=== PATIENT | male | born 1940 | race Caucasian/White ===

== ENCOUNTER 2016-10-19 12:24 | Outpatient (CLI) | payer MEDICARE, OTHER | END 2016-10-19 12:25 | disposition home or self-care (01) | DX: M19.042 Primary osteoarthritis, left hand (principal); M19.041 Primary osteoarthritis, right hand ==

== ENCOUNTER 2019-09-29 20:36 | Outpatient (CLI) | payer MEDICARE, OTHER | END 2019-09-29 20:37 | disposition critical access hospital (66) | LOC: EMS 20:36 | PROVIDERS: ATTEND Surgery | DX: R29.810 Facial weakness (principal); R53.1 Weakness | CPT/HCPCS: A0425; A0429 ==

== ENCOUNTER 2019-09-29 20:59 | Emergency (ER) | payer MEDICARE, OTHER ==
--- NOTE | 2019-09-29 21:04 | ED Physician Documentation ---
History of Present Illness - Stated complaint Stated Complaint: STROKE SYMPTS - Additonal information Additional information: This is a 79-year-old male with a history of DVT on Xarelto, hypertension, and iron deficiency anemia, who presents with right-sided facial droop and weakness. At 20:00 tonight patient was inside after dinner with his family and they noticed he had a right-sided facial droop. They also noticed a bit of weakness in his hand. They immediately called EMS who arrived and found to be hypertensive, brought him here for further evaluation. He states that he has a mild headache, otherwise he has no complaints. He did not notice that he had a weak arm. His last dose of Xarelto was this morning around 7 AM. He did not have any falls or head trauma, he was not exerting himself when the event occurred. No chest pain, no shortness of breath. Review of Systems Constitutional: denies: Fever Eyes: denies: Loss of vision Cardiac: denies: Chest pain / pressure Respiratory: denies: Dyspnea GI: denies: Abdominal Pain : denies: Dysuria Skin: denies: Rash Musculoskeletal: denies: Neck pain Neurologic: reports: Focal weakness PD PAST MEDICAL HISTORY - Past Medical History Cardiovascular: Deep vein thrombosis - Past Surgical History Past Surgical History: Yes - Present Medications Home Medications: Ambulatory Orders Medication Instructions Recorded Confirmed Metoprolol Succinate 50 mg PO DAILY 11/12/14 09/29/19 Prazosin [Minipress] 1 mg PO DAILY 11/12/14 09/29/19 Simvastatin 20 mg PO DAILY 11/12/14 09/29/19 Enalapril [Vasotec] 5 mg PO DAILY 02/02/15 09/29/19 Simvastatin 20 mg PO DAILY 09/29/19 09/29/19 - Allergies Allergies/Adverse Reactions: Allergies Allergy/AdvReac Type Severity Reaction Status Date / Time No Known Drug Allergies Allergy Verified 09/29/19 21:26 - Social History Does the pt smoke?: Yes Smoking Status: Current every day smoker Does the pt drink ETOH?: Yes Does the pt have substance abuse?: No - Immunizations Immunizations are current?: Yes - POLST Patient has POLST: Yes PD ED PE NORMAL - Vitals Vital signs reviewed: Yes (Hypertensive) - General General: Other (Alert, able to answer basic questions, knows where he is, seems a little unaware of the details of the event that occurred.) - HEENT HEENT: Atraumatic, Other (Slight irregularity in shape of the right pupil, but pupils are 3 mm and reactive bilaterally. Extraocular muscles intact) - Neck Neck: Supple, no meningeal sign - Cardiac Cardiac: RRR - Respiratory Respiratory: No respiratory distress, Clear bilaterally - Abdomen Abdomen: Soft, Non tender, Non distended - Derm Derm: Normal color - Extremities Extremities: No deformity PD ED PE EXPANDED - Neuro Neuro: Other (Alert, holding conversation, answers basic questions, possible mild confusion at times. Patient has a right-sided facial droop prominent around his mouth, his tongue deviation to the right. Speech is slightly slurred. Extraocular muscles are intact, visual tang are grossly intact to co nfrontation. Patient has 4+ out of 5 strength in his right hand with electric tape slitter strength, he also has drift of his right arm. His right leg strength is nearly symmetric with his left leg, there is very slight weakness with hip flexion against resistance on the right. His left upper and lower extremities have 5 out of 5 strength. Sensation appears intact to light touch over all extremities) Results - Vitals Vitals: Vital Signs - 24 hr 09/29/19 09/29/19 09/29/19 21:21 21:42 21:53 Temperature 37.1 C Heart Rate 98 91 98 Respiratory 18 21 23 Rate Blood Pressure 209/121 H 174/96 H 187/109 H O2 Saturation 100 98 97 09/29/19 09/29/19 09/29/19 22:01 22:07 22:12 Temperature Heart Rate 101 H 105 H 104 H Respiratory 14 18 21 Rate Blood Pressure 163/93 H 170/90 H 169/92 H O2 Saturation 97 99 98 09/29/19 09/29/19 09/29/19 22:16 22:22 22:29 Temperature Heart Rate 105 H 109 H 109 H Respiratory 19 17 14 Rate Blood Pressure 163/88 H 174/86 H 163/91 H O2 Saturation 98 100 98 09/29/19 09/29/19 09/29/19 22:32 22:40 22:58 Temperature Heart Rate 110 H 103 H 111 H Respiratory 13 17 18 Rate Blood Pressure 159/85 H 163/94 H 164/88 H O2 Saturation 98 99 98 09/29/19 09/29/19 09/29/19 23:00 23:22 23:25 Temperature 36.8 C Heart Rate 110 H 96 96 Respiratory 18 20 18 Rate Blood Pressure 161/86 H 152/76 H 121/72 O2 Saturation 98 98 96 Oxygen O2 Source Room air - EKG (time done) 21:16 Other comments: Other comments - Labs Labs: Laboratory Tests 09/29/19 09/29/19 09/29/19 21:30 21:50 21:50 WBC 8.7 RBC 4.25 L Hgb 14.4 Hct 41.3 L MCV 97.2 H MCH 33.9 H MCHC 34.9 RDW 13.6 Plt Count 212 MPV 10.9 Neut # (Auto) 6.6 Lymph # (Auto) 1.3 L [place] # (Auto) 0.7 Eos # (Auto) 0.1 Baso # (Auto) 0.1 Absolute Nucleated RBC 0.00 Nucleated RBC % 0.0 PT 13.0 H INR 1.2 APTT 27.1 Sodium 133 L Potassium 4.2 Chloride 95 L Carbon Dioxide 28 Anion Gap 10.0 BUN 18 Creatinine 0.9 Estimated GFR (MDRD) 82 L Glucose 243 H Calcium 9.0 Total Bilirubin 0.7 AST 36 ALT 31 Alkaline Phosphatase 86 Total Protein 7.6 Albumin 3.9 Globulin 3.7 Albumin/Globulin Ratio 1.1 Lipase 29 TSH Ethyl Alcohol < 5.0 09/29/19 21:50 WBC RBC Hgb Hct MCV MCH MCHC RDW Plt Count MPV Neut # (Auto) Lymph # (Auto) Gr[place] # (Auto) Eos # (Auto) Baso # (Auto) Absolute Nucleated RBC Nucleated RBC % PT INR APTT Sodium Potassium Chloride Carbon Dioxide Anion Gap BUN Creatinine Estimated GFR (MDRD) Glucose Calcium Total Bilirubin AST ALT Alkaline Phosphatase Total Protein Albumin Globulin Albumin/Globulin Ratio Lipase TSH 4.97 Ethyl Alcohol - Rads (name of study) CT Head Wo Radiology: Other (Acute intraparenchymal hematoma in the left thalamus measuring 21 x 20 x 130 mill meters there is mild surrounding edema but no significant midline shift.There is a cortical breakthrough hemorrhage into the intraventricular space with a small amount of bleeding into the left lateral horn. There is abnormal dilatation of the lateral ventricles right greater than left which is concerning for hydrocephalus. There are also some chronic white matter changes.) CTA head and neck Radiology: Other (Vasculature of the neck is patent with no high-grade stenosis or definitive dissection, there is no large vessel occlusion. There are segments of moderate stenosis in the bilateral robotic welding operator, possibly secondary to intracranial atherosclerosis versus vasculitis, though this is less likely. There is possible underlying mass lesion near the hemorrhage, MR brain with and without contrast is recommended for further evaluation) PD MEDICAL DECISION MAKING - ED course Complexity details: considered differential (Ischemic stroke, hemorrhagic stroke, mass, occlusion, hydrocephalus) ED course: Patient arrives via EMS, he has an obvious facial droop and right-sided arm drift he was taken immediately to the CT scanner where CT head revealed a hemorrhage in the left thalamus. He is hypertensive over 200 systolic, he was started on nicardipine with a goal of systolic blood pressure less than 160. EKG shows no convincing signs of ischemia or dysrhythmia. I spoke with Dr. Louise of neurology at [facility] at 21:25, reviewed the patient has a intraparenchymal bleed, and he reviewed the images, He agreed with reversing patient with PCC, transfer to [facility] to the ICU, with neurosurgery on board. I spoke with Dr. Martines, Neurointensivist, Who accepted patient for transfer. I spoke with Dr. Florez of neurosurgery as well. Patient was given 2000 units of PCC, his anticoagulation is for past DVT, and at this time given he has a brain bleed causing neurologic deficit, the benefits of reversal appear to outweigh the risks. I did discuss this treatment plan with patient prior to giving the PCC, he is in agreement. On repeat examination patient has slightly increased weakness in his right arm, no other new neurologic findings. He continues to be awake and alert, I discussed the plan of care with him and he is in agreement. I also updated his daughter and were at bedside. He now has a systolic blood pressure less than 160 while on the nicardipine. I discussed the plan of care with patient his and his daughter, they are all in agreement. His CBC is unremarkable with no platelets his INR is 2.9 consistent with his anticoagulant use, his chemistry panel reveals a sodium of 133 and chloride of 95, his ethanol level is negative. On repeat examination just prior to transfer, his blood pressure is crept up and is now just over 160 systolic. He was given 1 dose of labetalol with excellent response, and his blood pressure was in normal range at the time of transfer. We discussed with EMS proper titration of the nicardipine. Patient states he is feeling well, without a headache, and his neuro exam appears stable with right facial droop and right arm weakness. Patient was transferred via ALS to [facility]. We do not have air transport tonight due to poor weather conditions. Departure - Departure Disposition: 02 Transfer Acute Care Hosp Clinical Impression: Hemorrhagic stroke, Hypertensive emergency Condition: Stable Discharge Date/Time: 09/29/19 23:43
[2019-09-29] MEDS ORDERED: IOVERSOL 320 100 ML VIAL IVP ONE ×2 (21:19→21:27)
[2019-09-29] MEDS ORDERED: niCARdipine 20 MG/200 ML 20 MG/200 ML BAG IV STA (21:20)
--- NOTE | 2019-09-29 21:29 | CT Report ---
Reason: R ARM DRIFT, FACIAL DROOP Procedure Date: 09/29/2019 Accession Number: [id number] / [id number] Procedure: CT - Head W/O Stroke Protocol CPT Code: Final Report FULL RESULT: EXAM: CT HEAD WITHOUT CONTRAST. EXAM DATE: 09/29/2019 09:07 PM. CLINICAL HISTORY: 79-year-old presenting with right facial droop and right arm drift. Evaluate for intracranial pathology. COMPARISON: None. TECHNIQUE: Multiaxial CT images were obtained from the foramen magnum to the vertex. Reformats: Sagittal and coronal. IV contrast: None. In accordance with CT protocol optimization, one or more of the following dose reduction techniques were utilized for this exam: automated exposure control, adjustment of mA and/or KV based on patient size, or use of iterative reconstructive technique. FINDINGS: Parenchyma: There is a intraparenchymal hematoma centered within left thalamus measuring approximately 21 x 21 x 30 mm (CC by TR by AP). There is mild stranding edema with focal mass effect but no significant midline shift. There are punctate calcifications seen along the periventricular white matter of the lateral ventricles bilaterally. No definite parenchymal mass seen. There is mild to moderate bilateral areas of white matter hypoattenuation. Extraaxial Spaces: There is effacement of the sulci especially near the vertex. No subdural or epidural collections identified. Ventricles: There is abnormal asymmetric, right greater than left, dilatation of the lateral ventricles. There is a small intraventricular hemorrhage seen with hemorrhage within the frontal horn in the left lateral ventricle and within the third ventricle. Incidentally seen is a cavum septum pellucidum. Sinuses and Orbits: Changes of bilateral lens replacement. Small to moderate volume frothy material within the right sphenoid sinus. Mastoid air cells and middle ear cavities are clear. Bones: No evidence of fracture or calvarial defect. Other: Vascular calcifications of the cavernous and supraclinoid ICA segments. IMPRESSION: 1. There is an acute intraparenchymal hematoma centered within the left thalamus measuring 21 x 21 x 30 mm (CC by TR by AP; volume 6.62 cc). There is mild surrounding edema with local mass but no significant midline shift. Consider a MR brain for further evaluation. 2. There is cortical breakthrough of the hemorrhage into the intraventricular space with small volume intraventricular hemorrhage seen within the frontal horn of the left lateral ventricle and within the third ventricle. 3. There is abnormal dilatation of the lateral ventricles, right greater than left. Finding is concerning for hydrocephalus. 4. There are abnormal calcifications that appeared be lining the ependyma of the lateral ventricles. Finding may represent sequela of prior infection or may represent displaced choroid plexus. 5. Mild to moderate white matter changes that appear chronic. Etiologies include increased transependymal flow or sequela of chronic small vessel ischemic disease. RADIA The critical test notification system was initiated by Dr. Ash Mann at 09:29 PM on 09/29/2019. The above critical test findings were discussed with Dr Dorantes by Dr. Ash Mann at 09:35 PM on 09/29/2019.
[2019-09-29] MEDS ORDERED: PROTHROMBIN COMPLEX CONC 500 UNIT VIAL IVP STA (21:39)
[2019-09-29 21:41] LABS: BASOPHILS # (AUTO) 0.1 10^3/uL (0.0-0.1); BASOPHILS % (AUTO) 0.6 %; EOSINOPHILS # (AUTO) 0.1 10^3/uL (0.0-0.7); EOSINOPHILS % (AUTO) 0.8 %; HGB - HEMOGLOBIN 14.4 g/dL (14.0-18.0); LYMPHOCYTES # (AUTO) 1.3 10^3/uL (1.5-3.5); LYMPHOCYTES % (AUTO) 15.4 %; MEAN CORPUSCULAR HEMOGLOBIN 33.9 pg (27.0-31.0); MEAN CORPUSCULAR HGB CONC 34.9 g/dL (32.0-36.0); MEAN CORPUSCULAR VOLUME 97.2 fL (80.0-94.0); MEAN PLATELET VOLUME 10.9 fL (7.4-11.4); MONOCYTES # (AUTO) 0.7 10^3/uL (0.0-1.0); MONOCYTES % (AUTO) 7.7 %; NEUTROPHILS # (AUTO) 6.6 10^3/uL (1.5-6.6); NEUTROPHILS % (AUTO) 75.2 %; PLT - PLATELET COUNT 212 10^3/uL (130-450); RED BLOOD COUNT 4.25 10^6/uL (4.70-6.10); RED CELL DISTRIBUTION WIDTH 13.6 % (12.0-15.0); WHITE BLOOD COUNT 8.7 x10^3/uL (4.8-10.8)
--- NOTE | 2019-09-29 21:51 | CT Report ---
Reason: L sided facial droop Procedure Date: 09/29/2019 Accession Number: [id number] / [id number] Procedure: CT - ANGIO HEAD W/WO CPT Code: Addended Final Report FULL RESULT: EXAM: CT ANGIOGRAM HEAD AND NECK. CT SCAN HEAD WITH CONTRAST. EXAM DATE: 09/29/2019 09:19 PM. CLINICAL HISTORY: 79-year-old presenting with right-sided facial droop and right arm weakness. Evaluate for intracranial pathology or vascular pathology. COMPARISON: HEAD W/O STROKE PROTOCOL 09/29/2019 9:07 PM. NECK ANGIO 09/29/2019 9:10 PM. TECHNIQUE: Routine axial helical CTA imaging was performed from the aortic arch through the [place] of [place]. Routine axial CT imaging of the head was performed following contrast administration. Reconstructions: Routine multiplanar 3D MIP reconstructions. IV contrast: OPTI 320, 80 mL. NASCET Criteria are used for stenosis measurements. In accordance with CT protocol optimization, one or more of the following dose reduction techniques were utilized for this exam: automated exposure control, adjustment of mA and/or KV based on patient size, or use of iterative reconstructive technique. FINDINGS: CT SCAN HEAD: Parenchyma: There is a centered within left thalamus measuring approximately 21 x 21 x 30 mm (CC by TR by AP). There is mild stranding edema with local mass-effect but no significant midline shift. There is a calcification seen along the ventricular white matter of lateral ventricles bilaterally. No definite parenchymal mass seen. There is mild to moderate bilateral areas of white matter attenuation. Along the posterior aspect of the intraparenchymal hematoma is what appears to be a mass-like lesion with hyperenhancement measuring 7 x 7 x 9 mm (CC by TR by AP). There is no evidence of "spot sign" on CT angiographic imaging. Extraaxial Spaces: There is effacement of the soles especially near the vertex. No subdural or epidural collections identified. Ventricles: There is abnormal asymmetric, right greater than left, dilatation of the lateral ventricles. There is small intraventricular hemorrhage seen with hemorrhage within the frontal horn left lateral, and within the third ventricle. Incidentally seen is a cavum septum pellucidum. Sinuses and Orbits: Changes of bilateral lens replacement. Small to moderate volume from the material within the right sphenoid sinus. Mastoid air cells and minor cavities are clear. Bones: No evidence of fracture or calvarial defect. Other: Vascular calcifications of the cavernous and supraclinoid ICA segments. CT ANGIOGRAM HEAD AND NECK: The aortic arch appears normal. The left common carotid artery rises from the innominate artery. The visualized subclavian arteries appear normal. RIGHT: Common Carotid Artery: Patent without significant stenosis. Carotid Bulb: There is minimal atherosclerotic plaque at the carotid bifurcation. Stenosis at the bifurcation by NASCET criteria: No significant stenosis. Internal Carotid Artery: No evidence of dissection. No evidence of aneurysm along the intracranial ICA. External Carotid Artery: Unremarkable. Vertebral Artery: There is arthrosclerotic plaque seen at the origin of the vertebral artery with less than 30% stenosis. The remaining visualized vertebral artery appears patent with no definite areas of high-grade stenosis or significant narrowing seen. No evidence of dissection. No aneurysm. Anterior Cerebral Artery: Patent without significant stenosis, aneurysm, or vascular malformation. Middle Cerebral Artery: Patent without significant stenosis, aneurysm, or vascular malformation. Posterior Cerebral Artery: The P1 segment appears normal. There are multiple tandem segments of moderate stenosis involving P2 and P3 segments of the right PRIMING MIXTURE CARRIER. Posterior Communicating Artery: Not definitively seen. No aneurysm. LEFT: Common Carotid Artery: Patent without significant stenosis. Carotid Bulb: There is minimal atherosclerotic plaque at the carotid bifurcation. Stenosis at the bifurcation by NASCET criteria: No significant stenosis. Internal Carotid Artery: There is atherosclerotic plaque involving the proximal cervical ICA with no high-grade stenosis or dissection seen. There is minimal atherosclerotic plaque involving the cavernous ICA segment with no high-grade stenosis seen. No evidence of aneurysm along the intracranial ICA. External Carotid Artery: Unremarkable. Vertebral Artery: Patent without significant stenosis. No evidence of dissection. No aneurysm. Anterior Cerebral Artery: Patent without significant stenosis, aneurysm, or vascular malformation. Middle Cerebral Artery: Patent without significant stenosis, aneurysm, or vascular malformation. Posterior Cerebral Artery: The P1 segment appears normal. There are multiple tandem segments of moderate stenosis involving P2 and P3 segments of the left PRIMING MIXTURE CARRIER. No aneurysm. Posterior Communicating Artery: Patent. No aneurysm. CENTRAL: Anterior Communicating Artery: Patent. No aneurysm. Basilar Artery: Patent without significant stenosis. No aneurysm. DURAL VENOUS SINUSES AND MAJOR CENTRAL VEINS: Patent. OTHER: The visualized pharynx and larynx appear normal. The major salivary glands appear normal. The visualized thyroid appears normal. No cervical lymphadenopathy. No necrotic lymph nodes. Soft tissues of the neck appear normal. Pleural-parenchymal scarring of the visualized lung apices. Dependent atelectatic changes. Minimal emphysematous changes. No acute fracture or traumatic subluxation. Multilevel degenerative changes. No suspicious osseous lesion seen. IMPRESSION: CT SCAN HEAD: 1. There is an acute intraparenchymal hematoma centered within the left thalamus measuring 21 x 221 x mm (CC by TR by AP; volume 6.62 cc). Along the posterior aspect of the intraparenchymal hematoma is what appears to be a masslike lesion with hyperenhancement measuring 7 x 7 x 9 mm (CC by TR by AP). There is no evidence of "spot sign" on CT angiographic imaging to suggest active hemorrhage. Combined findings suggest potential underlying mass lesion such as metastasis or primary glial neoplasm with subsequent hemorrhage. There is mild surrounding edema with local mass but no significant midline shift. Consider a MR brain for further evaluation. 2. There is cortical breakthrough hemorrhage of the hemorrhage into the intraventricular space with small volume intraventricular hemorrhage seen within the frontal horn of the left lateral ventricle and within the third ventricle. 3. There is abnormal dilatation of the lateral ventricles, right greater than left. Finding is concerning for hydrocephalus 4. There are abnormal calcifications that appeared be lining the ependyma of the lateral ventricles. Finding may represent sequela of prior infection or [place] present displaced choroid plexus. 5. Mild to moderate white matter changes that appear chronic. Etiologies include increased transependymal flow or sequela of chronic small vessel ischemic disease.. CT ANGIOGRAM NECK: 1. The vasculature of the neck appears patent with no high-grade stenosis or definite dissection seen. CT ANGIOGRAM HEAD: 1. No large vessel occlusion. 2. There is CTA evidence of multiple tandem segments of moderate stenosis of bilateral voice writing reporter that may be secondary to intracranial atherosclerosis. Possibility that the stenoses are secondary to vasculitis is considered less likely. 3. No aneurysm. RADIA The call report notification system was initiated by Dr. Ash Mann at 09:50 PM on 09/29/2019. ADDENDUM: 09/29/19 21:57 The above call report findings were discussed with John Jiang by Dr. Ash Mann at 09:57 PM on 09/29/2019.
--- NOTE | 2019-09-29 21:51 | CT Report ---
Reason: L sided facial droop, L neck pain Procedure Date: 09/29/2019 Accession Number: [id number] / [id number] Procedure: CT - ANGIO NECK W CPT Code: Addended Final Report FULL RESULT: EXAM: CT ANGIOGRAM HEAD AND NECK. CT SCAN HEAD WITH CONTRAST. EXAM DATE: 09/29/2019 09:19 PM. CLINICAL HISTORY: 79-year-old presenting with right-sided facial droop and right arm weakness. Evaluate for intracranial pathology or vascular pathology. COMPARISON: HEAD W/O STROKE PROTOCOL 09/29/2019 9:07 PM. NECK ANGIO 09/29/2019 9:10 PM. TECHNIQUE: Routine axial helical CTA imaging was performed from the aortic arch through the [place]. Routine axial CT imaging of the head was performed following contrast administration. Reconstructions: Routine multiplanar 3D MIP reconstructions. IV contrast: OPTI 320, 80 mL. NASCET Criteria are used for stenosis measurements. In accordance with CT protocol optimization, one or more of the following dose reduction techniques were utilized for this exam: automated exposure control, adjustment of mA and/or KV based on patient size, or use of iterative reconstructive technique. FINDINGS: CT SCAN HEAD: Parenchyma: There is a centered within left thalamus measuring approximately 21 x 21 x 30 mm (CC by TR by AP). There is mild stranding edema with local mass-effect but no significant midline shift. There is a calcification seen along the ventricular white matter of lateral ventricles bilaterally. No definite parenchymal mass seen. There is mild to moderate bilateral areas of white matter attenuation. Along the posterior aspect of the intraparenchymal hematoma is what appears to be a mass-like lesion with hyperenhancement measuring 7 x 7 x 9 mm (CC by TR by AP). There is no evidence of "spot sign" on CT angiographic imaging. Extraaxial Spaces: There is effacement of the soles especially near the vertex. No subdural or epidural collections identified. Ventricles: There is abnormal asymmetric, right greater than left, dilatation of the lateral ventricles. There is small intraventricular hemorrhage seen with hemorrhage within the frontal horn left lateral, and within the third ventricle. Incidentally seen is a cavum septum pellucidum. Sinuses and Orbits: Changes of bilateral lens replacement. Small to moderate volume from the material within the right sphenoid sinus. Mastoid air cells and minor cavities are clear. Bones: No evidence of fracture or calvarial defect. Other: Vascular calcifications of the cavernous and supraclinoid ICA segments. CT ANGIOGRAM HEAD AND NECK: The aortic arch appears normal. The left common carotid artery rises from the innominate artery. The visualized subclavian arteries appear normal. RIGHT: Common Carotid Artery: Patent without significant stenosis. Carotid Bulb: There is minimal atherosclerotic plaque at the carotid bifurcation. Stenosis at the bifurcation by NASCET criteria: No significant stenosis. Internal Carotid Artery: No evidence of dissection. No evidence of aneurysm along the intracranial ICA. External Carotid Artery: Unremarkable. Vertebral Artery: There is arthrosclerotic plaque seen at the origin of the vertebral artery with less than 30% stenosis. The remaining visualized vertebral artery appears patent with no definite areas of high-grade stenosis or significant narrowing seen. No evidence of dissection. No aneurysm. Anterior Cerebral Artery: Patent without significant stenosis, aneurysm, or vascular malformation. Middle Cerebral Artery: Patent without significant stenosis, aneurysm, or vascular malformation. Posterior Cerebral Artery: The P1 segment appears normal. There are multiple tandem segments of moderate stenosis involving P2 and P3 segments of the right [employer]. Posterior Communicating Artery: Not definitively seen. No aneurysm. LEFT: Common Carotid Artery: Patent without significant stenosis. Carotid Bulb: There is minimal atherosclerotic plaque at the carotid bifurcation. Stenosis at the bifurcation by NASCET criteria: No significant stenosis. Internal Carotid Artery: There is atherosclerotic plaque involving the proximal cervical ICA with no high-grade stenosis or dissection seen. There is minimal atherosclerotic plaque involving the cavernous ICA segment with no high-grade stenosis seen. No evidence of aneurysm along the intracranial ICA. External Carotid Artery: Unremarkable. Vertebral Artery: Patent without significant stenosis. No evidence of dissection. No aneurysm. Anterior Cerebral Artery: Patent without significant stenosis, aneurysm, or vascular malformation. Middle Cerebral Artery: Patent without significant stenosis, aneurysm, or vascular malformation. Posterior Cerebral Artery: The P1 segment appears normal. There are multiple tandem segments of moderate stenosis involving P2 and P3 segments of the left [employer]. No aneurysm. Posterior Communicating Artery: Patent. No aneurysm. CENTRAL: Anterior Communicating Artery: Patent. No aneurysm. Basilar Artery: Patent without significant stenosis. No aneurysm. DURAL VENOUS SINUSES AND MAJOR CENTRAL VEINS: Patent. OTHER: The visualized pharynx and larynx appear normal. The major salivary glands appear normal. The visualized thyroid appears normal. No cervical lymphadenopathy. No necrotic lymph nodes. Soft tissues of the neck appear normal. Pleural-parenchymal scarring of the visualized lung apices. Dependent atelectatic changes. Minimal emphysematous changes. No acute fracture or traumatic subluxation. Multilevel degenerative changes. No suspicious osseous lesion seen. IMPRESSION: CT SCAN HEAD: 1. There is an acute intraparenchymal hematoma centered within the left thalamus measuring 21 x 221 x mm (CC by TR by AP; volume 6.62 cc). Along the posterior aspect of the intraparenchymal hematoma is what appears to be a masslike lesion with hyperenhancement measuring 7 x 7 x 9 mm (CC by TR by AP). There is no evidence of "spot sign" on CT angiographic imaging to suggest active hemorrhage. Combined findings suggest potential underlying mass lesion such as metastasis or primary glial neoplasm with subsequent hemorrhage. There is mild surrounding edema with local mass but no significant midline shift. Consider a MR brain for further evaluation. 2. There is cortical breakthrough hemorrhage of the hemorrhage into the intraventricular space with small volume intraventricular hemorrhage seen within the frontal horn of the left lateral ventricle and within the third ventricle. 3. There is abnormal dilatation of the lateral ventricles, right greater than left. Finding is concerning for hydrocephalus 4. There are abnormal calcifications that appeared be lining the ependyma of the lateral ventricles. Finding may represent sequela of prior infection or [place] present displaced choroid plexus. 5. Mild to moderate white matter changes that appear chronic. Etiologies include increased transependymal flow or sequela of chronic small vessel ischemic disease.. CT ANGIOGRAM NECK: 1. The vasculature of the neck appears patent with no high-grade stenosis or definite dissection seen. CT ANGIOGRAM HEAD: 1. No large vessel occlusion. 2. There is CTA evidence of multiple tandem segments of moderate stenosis of bilateral terrazzo roller that may be secondary to intracranial atherosclerosis. Possibility that the stenoses are secondary to vasculitis is considered less likely. 3. No aneurysm. RAD[facility] The call report notification system was initiated by Dr. Ash Mann at 09:50 PM on 09/29/2019. ADDENDUM: 09/29/19 21:58 The above call report findings were discussed with John Jiang by Dr. Ash Mann at 09:58 PM on 09/29/2019.
[2019-09-29 22:05] LABS: INR 1.2 (0.8-1.2)
[2019-09-29 22:09] LABS: ALBUMIN 3.9 g/dL (3.2-5.5); ALBUMIN/GLOBULIN RATIO 1.1 (1.0-2.2); ALKALINE PHOSPHATASE 86 IU/L (42-121); ALT ALANINE AMINOTRANSFERASE 31 IU/L (10-60); AST ASPARTATE AMINOTRANSFERASE 36 IU/L (10-42); BILIRUBIN,TOTAL 0.7 mg/dL (0.2-1.0); BUN - BLOOD UREA NITROGEN 18 mg/dL (6-20); CARBON DIOXIDE - CO2 28 mmol/L (21-32); CHLORIDE 95 mmol/L (101-111); CREATININE 0.9 mg/dL (0.6-1.2); GFR - MDRD 82 (>89); GLUCOSE 243 mg/dL (70-100); LIPASE 29 U/L (22-51); SODIUM 133 mmol/L (135-145); TOTAL PROTEIN 7.6 g/dL (6.7-8.2)
[2019-09-29 22:12] LABS: PARTIAL THROMBOPLASTIN TIME 27.1 secs (24.9-33.3)
[2019-09-29] MEDS ORDERED: niCARdipine 20 MG/200 ML 20 MG/200 ML BAG IV ONE (22:58)
[2019-09-29] MEDS ORDERED: LABETALOL 5 MG/1 ML 20 ML MDV IV STA (23:02)
[2019-09-29] MEDS: LABETALOL 20 MG/4 ML SYRINGE IVP STA ×2 (23:12→23:32)
[2019-09-29 23:28] VITALS: BP 121/72
== END 2019-09-29 23:43 | disposition short-term general hospital (02) ==
LOC: EDUNIT# → ED 20:59
DX: I61.8 Other nontraumatic intracerebral hemorrhage (principal); R29.810 Facial weakness; R29.898 Other symptoms and signs involving the musculoskeletal system; I16.1 Hypertensive emergency; I44.0 Atrioventricular block, first degree; Z86.718 Personal history of other venous thrombosis and embolism; Z79.01 Long term (current) use of anticoagulants; D50.9 Iron deficiency anemia, unspecified; F17.200 Nicotine dependence, unspecified, uncomplicated
CPT/HCPCS: 36415; 70450; 70496; 70498; 80053; 83690; 84443; 85025; 85610; 85730; 93005; 96365; 96375; 99284; 99285; C9132; Q9967; 80320

== ENCOUNTER 2019-09-29 23:20 | Outpatient (CLI) | payer MEDICARE, OTHER | END 2019-09-29 23:21 | disposition short-term general hospital (02) | LOC: EMS 23:20 | PROVIDERS: ATTEND Surgery | DX: I62.9 Nontraumatic intracranial hemorrhage, unspecified (principal) | CPT/HCPCS: A0425; A0426 ==

== ENCOUNTER 2020-11-08 10:46 | Outpatient (CLI) | payer MEDICARE, OTHER ==
--- NOTE | 2020-11-08 16:48 | XRAY Report ---
PROCEDURE: Hip w/Pelvis 2-3V RT INDICATIONS: HIP SPASM TECHNIQUE: AP pelvis with lateral view(s) of the bilateral hip(s). COMPARISON: None. FINDINGS: Bones: No acute fractures or dislocations. Pelvic ring appears intact. No suspicious bony lesions. There are mild-moderate degenerative changes of the right femoroacetabular joint. There is mild subc hondral sclerosis involving the acetabular side of the hip joint space on the right. There is also mi nimal subchondral cystic changes of the right femoral head. No significant joint space loss. Soft tissues: The visualized bowel gas pattern is normal. No suspicious soft tissue calcifications. IMPRESSION: Right hip without acute fracture or dislocation. Right hip joint osteoarthrosis. Reviewed by: Horacio Blanton MD on 11/08/2020 4:47 PM PST Approved by: Horacio Blanton MD on 11/08/2020 4:47 PM PST Station ID: [id number]
== END 2020-11-08 10:47 | disposition home or self-care (01) ==
LOC: DI 10:46
PROVIDERS: ATTEND Internal Medicine
DX: S73.191A Other sprain of right hip, initial encounter (principal); M16.11 Unilateral primary osteoarthritis, right hip

== ENCOUNTER 2022-02-01 09:09 | Outpatient (CLI) | payer MEDICARE, OTHER ==
--- NOTE | 2022-02-01 09:30 | XRAY Report ---
PROCEDURE: Lumbar Spine 2 View INDICATIONS: LOW BACK PAIN TECHNIQUE: 2 views of the lumbar spine were acquired. COMPARISON: None. FINDINGS: Bones: 5 [id number] vertebrae are present. Multilevel degenerative changes with anterior osteo phytes which are fused at the level of T11-12 and T12-L1. Facet arthrosis in the lower lumbar spine. There is normal bony alignment. No vertebral body compression fractures. No suspicious bony lesions . The sacroiliac joints have degenerative changes. Soft tissues: Overlying bowel gas pattern is normal. No suspicious soft tissue calcifications. An IVC filter is noted. IMPRESSION: 1. Multilevel lumbar spondylosis with facet arthrosis. 2. No significant disc space narrowing. Reviewed by: Aristides España on 02/01/2022 9:29 AM PDT Approved by: Aristides España on 02/01/2022 9:29 AM PDT Station ID: [id number]
== END 2022-02-01 09:10 | disposition home or self-care (01) ==
LOC: DI 09:09
PROVIDERS: ATTEND Internal Medicine
DX: M47.816 Spondylosis without myelopathy or radiculopathy, lumbar region (principal)

== ENCOUNTER 2022-04-13 12:27 | Day surgery (SDC) | payer MEDICARE, OTHER ==
[2022-04-13] MEDS ORDERED: PROPOFOL 500 MG/50 ML 500 MG/50 ML VIAL ONE (12:29)
[2022-04-13] MEDS ORDERED: LACTATED RINGERS 1,000 ML IV ONE (13:02)
--- NOTE | 2022-04-13 13:13 | ANESTHESIA ---
Pre-Anesthesia VS, & Labs Height: 5 ft 4 in Weight (kg): 85.1 kg Body Mass Index: 32.2 BMI Classification: Obese - NPO >8 hours <Dionne Horner - Last Filed: 04/13/22 13:10> - Diagnosis hx of colon polyps (Dionne Horner) - Procedure colonoscopy (Dionne Horner) Vital Signs: Temp Pulse Resp BP Pulse Ox 36.3 C L 85 18 157/82 H 95 04/13/22 12:36 04/13/22 12:36 04/13/22 12:36 04/13/22 12:36 04/13/22 12:36 Home Medications and Allergies <Dionne Horner - Last Filed: 04/13/22 13:10> <Marcie Godinez - Last Filed: 04/13/22 13:33> Metoprolol Succinate 50 mg PO DAILY 11/12/14 Prazosin [Minipress] 1 mg PO DAILY 11/12/14 Simvastatin 20 mg PO DAILY 11/12/14 Enalapril [Vasotec] 5 mg PO DAILY 02/02/15 Allergies/Adverse Reactions: Allergies Allergy/AdvReac Type Severity Reaction Status Date / Time No Known Drug Allergies Allergy Verified 09/29/19 21:26 Anes History & Medical History - Anesthetic History Anesthesia Complications: reports: No previous complications Family history of Anesthesia Complications: Denies Family history of Malignant Hyperthermia: Denies - Medical History Cardiovascular: reports: Hypertension, High cholesterol, Deep vein thrombosis Pulmonary: reports: None Gastrointestinal: reports: None Urinary: reports: Frequency Neuro: reports: None Musculoskeletal: reports: None, Osteoarthritis, Chronic back pain Endocrine/Autoimmune: reports: None, HyPOthyroidism Blood Disorders: reports: None Skin: reports: None Smoking Status: Current every day smoker Psychosocial: reports: No issues indicated History of Cancer?: No - Surgical History General: reports: Colonoscopy, Other (finger surgery) <Dionne Horner - Last Filed: 04/13/22 13:10> Exam General: Alert Dental: Poor dentition Mouth Openin Fingerbreadth Neck Mobility: Normal Mallampati classification: II Thyromental Distance: 4-6 cm Respiratory: Lungs clear Extremities: Normal pulses Mental/Cognitive Status: Alert/Oriented X3, Normal for patient Cognitive Status: Within normal limits <Dionne Horner - Last Filed: 04/13/22 13:10> Plan Anesthesia Type: General, Total IV Consent for Procedure(s) Verified and Reviewed: Yes Code Status: Attempt Resuscitation ASA classification: 2-Mild systemic disease Is this case an emergency?: No <Dionne Horner - Last Filed: 04/13/22 13:10> ASA classification: 3-Severe systemic disease (ASA 3) <Marcie Godinez - Last Filed: 04/13/22 13:33>
[2022-04-13] MEDS ORDERED: LIDOCAINE-MPF 2% 5 ML VIAL ONE (13:35)
[2022-04-13] MEDS ORDERED: LACTATED RINGERS 400 ML IV ONE (14:36)
[2022-04-13 15:03] VITALS: BP 156/94
--- NOTE | 2022-04-13 15:35 | ANESTHESIA POST OP EVALUATION ---
Anesthesia Post Eval - Post Anesthesia Eval Vitals: Last Vital Signs Temp 36.5 C 04/13/22 14:36 Pulse 81 04/13/22 15:02 Resp 16 04/13/22 15:02 BP 156/94 H 04/13/22 15:02 Pulse Ox 99 04/13/22 15:02 CV Function Including HR & BP: Stable Pain Control: Satisfactory Nausea & Vomiting: Negative Mental Status: Baseline Respiratory Status: Airway Patent Hydration Status: Satisfactory Anesthesia Complications: None
== END 2022-04-13 12:28 | disposition home or self-care (01) ==
LOC: SDS 12:27
PROVIDERS: ATTEND Surgery
PROC: 0DBL8ZX Excision of Transverse Colon, Via Natural or Artificial Opening Endoscopic, Diagnostic (ICD-10-PCS; 2022-04-13)
PROC: 0DBN8ZX Excision of Sigmoid Colon, Via Natural or Artificial Opening Endoscopic, Diagnostic (ICD-10-PCS; 2022-04-13)
PROC: 0DBP8ZX Excision of Rectum, Via Natural or Artificial Opening Endoscopic, Diagnostic (ICD-10-PCS; 2022-04-13)
PROC: 0DBK8ZX Excision of Ascending Colon, Via Natural or Artificial Opening Endoscopic, Diagnostic (ICD-10-PCS; principal; 2022-04-13 14:00)
DX: D12.2 Benign neoplasm of ascending colon (principal); D12.5 Benign neoplasm of sigmoid colon; D12.3 Benign neoplasm of transverse colon; D12.8 Benign neoplasm of rectum; D64.9 Anemia, unspecified; I10 Essential (primary) hypertension; I48.91 Unspecified atrial fibrillation; E11.9 Type 2 diabetes mellitus without complications; E66.9 Obesity, unspecified; Z68.33 Body mass index [BMI] 33.0-33.9, adult; Z79.01 Long term (current) use of anticoagulants; Z79.84 Long term (current) use of oral hypoglycemic drugs; Z86.718 Personal history of other venous thrombosis and embolism; Z86.73 Personal history of transient ischemic attack (TIA), and cerebral infarction without residual deficits
CPT/HCPCS: 45380; 45385; J7120

== ENCOUNTER 2023-07-28 11:42 | Outpatient (CLI) | payer MEDICARE, OTHER ==
--- NOTE | 2023-07-28 20:01 | Ultrasound Report ---
PROCEDURE: Duplex Ext Veins Right INDICATIONS: PHLBTS AND THOMBOPHLB OF UNSP DEEP VESSELS OF UNSP TECHNIQUE: Real-time imaging, as well as color and pulse Doppler interrogation, were performed of the lower extr emity deep veins from the inguinal ligament to the popliteal fossa. Attempted visualization of the ca lf veins was performed. COMPARISON: 12/10/2014 FINDINGS: There is a small amount of chronic appearing, nonocclusive thrombus seen within the poplit eal vein. Within the distal femoral vein, there is minimal flow seen, without compressibility. No deep venous thrombosis is seen more proximally. A minimal flow seen within the mid and distal posterior tibial veins and peroneal veins. Lower extremity edema is seen. IMPRESSION: Chronic, nonocclusive thrombus can be seen within the right lower extremity, which appears similar to 2014. No new thrombus or areas of occlusive thrombus can be seen. Reviewed by: Hari Zimmerman MD on 07/28/2023 6:59 PM [place] Approved by: Hari Zimmerman MD on 07/28/2023 6:59 PM [facility]UST Station ID: [id number]
== END 2023-07-28 11:43 | disposition home or self-care (01) ==
LOC: DI 11:42
PROVIDERS: ATTEND Internal Medicine
DX: I82.531 Chronic embolism and thrombosis of right popliteal vein (principal)

== ENCOUNTER 2023-10-21 04:28 | Outpatient (CLI) | payer MEDICARE, OTHER | END 2023-10-21 23:59 | disposition short-term general hospital (02) | LOC: EMS 04:28 | DX: R07.9 Chest pain, unspecified (principal); I48.91 Unspecified atrial fibrillation | CPT/HCPCS: A0425; A0427 ==

== ENCOUNTER 2023-11-02 21:57 | Outpatient (CLI) | payer MEDICARE, OTHER | END 2023-11-02 21:58 | disposition critical access hospital (66) | LOC: EMS 21:57 | DX: I47.10 Supraventricular tachycardia, unspecified (principal); R07.89 Other chest pain | CPT/HCPCS: A0425; A0427 ==

== ENCOUNTER 2023-11-02 22:13 | Emergency (ER) | payer MEDICARE, OTHER ==
--- NOTE | 2023-11-02 22:13 | ED Physician Documentation ---
History of Present Illness - Stated complaint Stated Complaint: SVT - Additonal information Additional information: BIBA. HPI from EMS as well as patient. 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 Says he had a similar episode recently for which she was treated at [facility] emergency department. EMS says patient's who was on scene when they were talking the patient (but is not in the ED at this time) indicated that the diagnosis was SVT and the patient's metoprolol dosing was increased. EMS says that on their arrival heart rate was in the 180s range. Fingerstick blood sugar was 185. EMS administered 6 mg adenosine rapid IV push which resulted in conversion to normal sinus rhythm. Patient tells me he feels near- resolution of his symptoms; the palpitations are no longer felt but he says he still feels some mild midline anterior residual chest discomfort. Review of Systems Cardiac: reports: Chest pain / pressure, Palpitations. denies: Pedal edema, Calf pain Respiratory: reports: Reviewed and negative GI: reports: Reviewed and negative Neurologic: denies: Generalized weakness, Focal weakness, Numbness PD PAST MEDICAL HISTORY - Past Medical History Past Medical History: Yes Cardiovascular: Atrial fibrillation, Other (SVT) - Present Medications Home Medications: Ambulatory Orders Medication Instructions Recorded Confirmed Atorvastatin [Lipitor] 20 mg PO QPM 04/27/22 04/27/22 Finasteride [Proscar] 5 mg PO DAILY 04/27/22 04/27/22 Levothyroxine Sodium [Synthroid] 50 mcg PO QDAC 04/27/22 04/27/22 Metformin HCl [Metformin ER 500 mg PO TIDWM 04/27/22 04/27/22 Gastric] Metoprolol Tartrate [Lopressor] 25 mg PO BID 04/27/22 04/27/22 Ferrous Gluconate [Fergon] 324 mg PO DAILYWM #30 tablet 04/28/22 Pantoprazole [Protonix] 40 mg PO BID #60 tablet 04/28/22 - Allergies Allergies/Adverse Reactions: Allergies Allergy/AdvReac Type Severity Reaction Status Date / Time No Known Drug Allergies Allergy Verified 11/02/23 22:24 PD ED PE NORMAL - Vitals Vital signs reviewed: Yes - General General: Alert and oriented X 3, No acute distress, Well developed/nourished - Neck Neck: Supple, no meningeal sign - Cardiac Cardiac: RRR, No murmur - Respiratory Respiratory: No respiratory distress, Clear bilaterally - Abdomen Abdomen: Soft, Non tender - Extremities Extremities: No edema - Neuro Neuro: Alert and oriented X 3 Results - Vitals Vitals: Vital Signs - 24 hr 11/02/23 11/02/23 11/03/23 22:24 23:40 00:49 Temperature 36.6 C Heart Rate 96 88 78 Respiratory 22 15 16 Rate Blood Pressure 159/76 H 130/77 119/63 O2 Saturation 95 98 95 Oxygen O2 Source Room air - EKG (time done) No standard instances EKG releavant findings:: EKG personally interpreted by author of this note. Relevant findings are: Rate: Rate (enter#) (94) Rhythm: NSR Vista: LAD Intervals: Normal DE QRS: Normal Ischemia: Normal ST segments, Q waves (V1-V3) Compare to prior EKG: Changed from prior EKG (compared to 04/27/22: Q V2, V3 is new (could be lead placement combined with artifact in lead V3), and LAD new (normal axis 04/27/22)) - Labs Labs: Laboratory Tests 11/02/23 11/02/23 22:44 22:44 WBC 7.9 RBC 3.71 L Hgb 12.1 L Hct 37.4 L MCV 100.8 H MCH 32.6 H MCHC 32.4 RDW 14.0 Plt Count 245 MPV 10.3 Neut # (Auto) 6.0 Lymph # (Auto) 1.1 L Johnson # (Auto) 0.6 Eos # (Auto) 0.2 Baso # (Auto) 0.1 Absolute Nucleated RBC 0.00 Nucleated RBC % 0.0 Sodium 138 Potassium 3.7 Chloride 102 Carbon Dioxide 27 Anion Gap 9.0 BUN 23 H Creatinine 0.8 Estimated GFR (MDRD) 93 Glucose 185 H Calcium 9.0 Troponin I High Sens 7.8 TSH 4.94 PD Medical Decision Making - ED course Complexity details: reviewed results, re-evaluated patient, considered differential, d/w patient ED course: Patient remained in NST with decreasingly frequent PVC/PACs during ED stay. He was asymptomatic on reevaluation prior to d/c. No concerning nor diagnostic findings on tonight's tests. His high-sensitivity troponin is normal (7.8), and no noteworthy findings on CBC nor on basic metabolic profile. TSH is normal. EKG shows Q waves V1, V2, V3. Also left axis deviation. These findings are new compared to previous (April 27, 2022). As noted above, he had Q V1 on previous but the Q wave in V2 and V3 might be due to lead placement and there is artifact in V3 which could further complicate what is otherwise not an emergently concerning finding (new Q waves without ST abnormalities). The LAD is more confidently a new finding, but this is also not emergently concerning. Results reviewed with patient, return precautions discussed. 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 Ideally, following up with cardiology would be more appropriate for follow-up given tontony's episode. Departure - Departure Disposition: Home, Self Care Clinical Impression: SVT (supraventricular tachycardia) Condition: Good Instructions: Understanding Supraventricular Tachycardia SVT, Treatment for Supraventricular Tachycardia SVT Follow-Up: Rayna Alexis MD [Primary Care Provider] - Comments: The medics gave you an IV medication that stopped your rapid heart rate and you remained in a normal heart rhythm and with a normal heart rate throughout your ER stay. There were no concerning findings on the EKG performed in the ER nor on the blood tests. As we discussed, contact your primary care provider on Saturday when the office is next open to arrange for next available appointment for reevaluation even if your symptoms do not recur. Forms: PCP List Discharge Date/Time: 11/03/23 00:50
[2023-11-02 22:48] LABS: BASOPHILS # (AUTO) 0.1 10^3/uL (0.0-0.1); BASOPHILS % (AUTO) 0.6 %; EOSINOPHILS # (AUTO) 0.2 10^3/uL (0.0-0.7); EOSINOPHILS % (AUTO) 2.2 %; HCT - HEMATOCRIT 37.4 % (42.0-52.0); HGB - HEMOGLOBIN 12.1 g/dL (14.0-18.0); LYMPHOCYTES # (AUTO) 1.1 10^3/uL (1.5-3.5); LYMPHOCYTES % (AUTO) 13.3 %; MEAN CORPUSCULAR HEMOGLOBIN 32.6 pg (27.0-31.0); MEAN CORPUSCULAR HGB CONC 32.4 g/dL (32.0-36.0); MEAN CORPUSCULAR VOLUME 100.8 fL (80.0-94.0); MEAN PLATELET VOLUME 10.3 fL (7.4-11.4); MONOCYTES # (AUTO) 0.6 10^3/uL (0.0-1.0); MONOCYTES % (AUTO) 7.5 %; NEUTROPHILS % (AUTO) 76.1 %; PLT - PLATELET COUNT 245 10^3/uL (130-450); RED BLOOD COUNT 3.71 10^6/uL (4.70-6.10); WHITE BLOOD COUNT 7.9 x10^3/uL (4.8-10.8)
[2023-11-02 23:26] LABS: CREATININE 0.8 mg/dL (0.6-1.3); POTASSIUM 3.7 mmol/L (3.5-4.5)
[2023-11-02 23:30] LABS: TROPONIN I HIGH SENSITIVITY 7.8 ng/L (2.3-19.7)
[2023-11-02 23:39] LABS: THYROID STIMULATING HORMONE 4.94 uIU/mL (0.34-5.60)
[2023-11-03 00:57] VITALS: BP 119/63; O2SAT 95
== END 2023-11-03 00:50 | disposition home or self-care (01) ==
LOC: EDUNIT# → ED 22:13
DX: I47.10 Supraventricular tachycardia, unspecified (principal); I48.91 Unspecified atrial fibrillation; Z79.899 Other long term (current) drug therapy
CPT/HCPCS: 36415; 80048; 84443; 84484; 85025; 93005; 99284

== ENCOUNTER 2023-11-03 10:33 | Outpatient (CLI) | payer MEDICARE, OTHER | END 2023-11-03 10:34 | disposition short-term general hospital (02) | LOC: EMS 10:33 | DX: R07.89 Other chest pain (principal); R00.0 Tachycardia, unspecified | CPT/HCPCS: A0425; A0429; A0888 ==

== ENCOUNTER 2023-11-28 03:28 | Outpatient (CLI) | payer MEDICARE, OTHER | END 2023-11-28 03:29 | disposition short-term general hospital (02) | LOC: EMS 03:28 | DX: R07.9 Chest pain, unspecified (principal) | CPT/HCPCS: A0425; A0427; A0888 ==

== ENCOUNTER 2023-12-25 16:19 | Outpatient (CLI) | payer MEDICARE, OTHER | END 2023-12-25 23:59 | disposition short-term general hospital (02) | LOC: EMS 16:19 | DX: R00.0 Tachycardia, unspecified (principal); I48.91 Unspecified atrial fibrillation; Z79.01 Long term (current) use of anticoagulants | CPT/HCPCS: A0425; A0427; A0888 ==

== ENCOUNTER 2024-02-14 06:32 | Outpatient (CLI) | payer MEDICARE, OTHER | END 2024-02-14 23:59 | disposition short-term general hospital (02) | LOC: EMS 06:32 | DX: R07.89 Other chest pain (principal); I48.91 Unspecified atrial fibrillation; I48.92 Unspecified atrial flutter; Z79.01 Long term (current) use of anticoagulants | CPT/HCPCS: A0425; A0427 ==

== ENCOUNTER 2024-04-14 08:03 | Outpatient (CLI) | payer MEDICARE, OTHER ==
[2024-04-14 08:30] LABS: INR 1.7 (0.8-1.2); PT - PROTHROMBIN TIME 18.4 secs (9.9-12.6)
== END 2024-04-14 08:04 | disposition home or self-care (01) ==
LOC: LAB 08:03
PROVIDERS: ATTEND Internal Medicine
DX: I48.91 Unspecified atrial fibrillation (principal); Z79.01 Long term (current) use of anticoagulants
CPT/HCPCS: 36415; 85610

== ENCOUNTER 2024-05-08 09:06 | Outpatient (CLI) | payer MEDICARE, OTHER ==
[2024-05-08 12:13] LABS: INR 1.4 (0.8-1.2); PT - PROTHROMBIN TIME 14.5 secs (9.9-12.6)
== END 2024-05-08 09:07 | disposition home or self-care (01) ==
LOC: LAB.N 09:06
PROVIDERS: ATTEND Internal Medicine
DX: I48.91 Unspecified atrial fibrillation (principal)
CPT/HCPCS: 36415; 85610

== ENCOUNTER 2024-06-03 11:11 | Outpatient (CLI) | payer MEDICARE, OTHER ==
[2024-06-03 18:54] LABS: CALCIUM 9.4 mg/dL (8.5-10.3); CREATININE 1.3 mg/dL (0.6-1.3); POTASSIUM 4.5 mmol/L (3.5-4.5)
== END 2024-06-03 11:12 | disposition home or self-care (01) ==
LOC: LAB.N 11:11
PROVIDERS: ATTEND Internal Medicine
DX: I10 Essential (primary) hypertension (principal)
CPT/HCPCS: 36415; 80048